=== PATIENT | male | born 1950 | race Caucasian/White ===

== ENCOUNTER 2019-02-13 14:40 | Emergency (ER) | payer OTHER, MEDICARE ==
--- NOTE | 2019-02-13 15:07 | EDM.PDOC ---
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 He was near syncopal onto the ground and was hypotensive per responder/ ambulance initial blood pressure readings. Was placed in an ambulance for transport which time symptoms have continued to improve denying the need for being here/requesting to go home. Denies any issues or need to stay further. Denies the IV and IV fluids discussed with him. EKG obtained via ambulance showed a sinus rhythm, rate 64, no ectopic beats, blood pressure improved slightly in route and feeling much better with diaphoresis resolving once in a cool environment. Denies any chest pain or shortness of breath or other contributing signs or symptoms. Wednesday was the initiation of his lisinopril hydrochlorothiazide which may contribute to this with the heat and environmental factors of his work. Onset: Today, Sudden Onset Date: 02/13/19 Onset Time: 14:15 Duration: Hour(s):, Improving Location: Reports: Back Quality: Reports: Sharp Severity: Moderate Improves with: Reports: Other (Time cool air) Worsens with: Reports: None Context: Reports: Activity Associated Symptoms: Reports: No Other Symptoms. Denies: Chest Pain, Fever/ Chills, Headaches - Related Data Allergies Allergy/AdvReac Type Severity Reaction Status Date / Time Penicillins Allergy Rash Verified 02/13/19 14:51 Home Meds: Home Meds Lisinopril/Hydrochlorothiazide [Lisinopril-Hctz 20-25 mg Tab] 1 tab PO DAILY [History] metFORMIN HCl [Metformin HCl ER] 500 mg PO DAILY 02/13/19 [History] Past Medical History HEENT History: Reports: None Cardiovascular History: Reports: Hypertension Respiratory History: Reports: None Gastrointestinal History: Reports: None Genitourinary History: Reports: None Musculoskeletal History: Reports: Amputation (Right index) Neurological History: Reports: None Psychiatric History: Reports: None Endocrine/Metabolic History: Reports: Diabetes, Type II Hematologic History: Reports: None Immunologic History: Reports: None Oncologic (Cancer) History: Reports: None Dermatologic History: Reports: None - Infectious Disease History Infectious Disease History: Reports: None - Past Surgical History HEENT Surgical History: Reports: None Cardiovascular Surgical History: Reports: None Respiratory Surgical History: Reports: None GI Surgical History: Reports: Hernia, Abdominal Social & Family History - Family History Family Medical History: Noncontributory - Tobacco Use Smoking Status *Q: Former Smoker Tobacco Use Within Last Twelve Months: No Month/Year Tobacco Last Used: mar 1999 Smoking Cessation Information Provided To Patient: No Second Hand Smoke Exposure: No - Caffeine Use Caffeine Use: Reports: Coffee - Alcohol Use Alcohol Use History: Yes Alcohol Use in Last Twelve Months: Yes Alcohol Use Frequency: Rarely (4 or 5 beers in the past year) - Recreational Drug Use Recreational Drug Use: No Drug Use in Last 12 Months: No - Sexual History Sexual History: Reports: None ED ROS GENERAL - Review of Systems Review Of Systems: See Below Constitutional: Reports: No Symptoms HEENT: Reports: No Symptoms Respiratory: Reports: No Symptoms Cardiovascular: Reports: No Symptoms Endocrine: Reports: No Symptoms GI/Abdominal: Reports: No Symptoms : Reports: No Symptoms Musculoskeletal: Reports: No Symptoms Skin: Reports: No Symptoms Neurological: Reports: Dizziness Psychiatric: Reports: No Symptoms Hematologic/Lymphatic: Reports: No Symptoms Immunologic: Reports: No Symptoms ED EXAM, GENERAL - Physical Exam Exam: See Below Exam Limited By: No Limitations General Appearance: Alert, WD/WN, No Apparent Distress Eye Exam: Bilateral Eye: PERRL Ears: Normal External Exam, Normal Canal, Hearing Grossly Normal, Normal TMs Nose: Normal Inspection, Normal Mucosa, No Blood Throat/Mouth: Normal Inspection, Normal Lips, Normal Teeth, Normal Gums, Normal Oropharynx, Normal Voice, No Airway Compromise Head: Atraumatic, Normocephalic Neck: Normal Inspection, Supple, Non-Tender, Full Range of Motion Respiratory/Chest: No Respiratory Distress, Lungs Clear, Normal Breath Sounds, No Accessory Muscle Use, Chest Non-Tender Cardiovascular: Normal Peripheral Pulses, Regular Rate, Rhythm, No Edema, No Gallop, No JVD, No Murmur, No Rub GI/Abdominal: Normal Bowel Sounds, Soft, Non-Tender, No Organomegaly, No Distention, No Abnormal Bruit, No Mass (Male) Exam: Deferred Rectal (Males) Exam: Deferred Back Exam: Normal Inspection, Full Range of Motion Extremities: Normal Inspection, Normal Range of Motion, Non-Tender, Normal Capillary Refill, No Pedal Edema Neurological: Alert, Oriented, CN II-XII Intact, Normal Cognition, Normal Gait, Normal Reflexes, No Motor/Sensory Deficits Psychiatric: Normal Affect, Normal Mood Skin Exam: Warm, Dry, Intact, Normal Color, No Rash Lymphatic: No Adenopathy Course - Vital Signs Last Recorded V/S: Last Vital Signs Temp 36.8 C 02/13/19 14:52 Pulse 60 02/13/19 15:52 Resp 18 02/13/19 15:52 BP 148/70 H 02/13/19 15:52 Pulse Ox 97 02/13/19 15:52 - Orders/Labs/Meds Orders: Active Orders 24 hr Category Date Time Status Peripheral IV Care [RC] . DIRECTED Care 02/13/19 15:44 Active Sodium Chloride 0.9% [Saline Flush] Med 02/13/19 15:44 Active 10 ml FLUSH Q8HR PRN Peripheral IV Insertion Adult [OM.PC] Routine Oth 02/13/19 15:44 Ordered Medication Orders Sodium Chloride (Saline Flush) 10 ml FLUSH Q8HR PRN PRN Reason: keep vein open Labs: Laboratory Tests 02/13/19 02/13/19 02/13/19 Range/Units 14:55 14:55 15:55 WBC 11.47 H (5.00-10.00) 10^3/uL RBC 3.52 L (4.50-6.00) 10^6/uL Hgb 10.9 L (13.0-17.0) g/dL Hct 30.7 L (40.0-52.0) % MCV 87.2 (82.0-92.0) fL MCH 31.0 (27.0-31.0) pg MCHC 35.5 (32.0-36.0) g/dL RDW 12.7 (11.5-14.5) % Plt Count 335 (150-400) 10^3/uL MPV 8.9 (7.4-10.4) fL Immature Gran % (Auto) 0.3 (0.0-5.0) % Neut % (Auto) 64.9 (50.0-70.0) % Lymph % (Auto) 25.4 (20.0-40.0) % Dubois % (Auto) 7.8 (2.0-8.0) % Eos % (Auto) 1.2 (1.0-3.0) % Baso % (Auto) 0.4 (0.0-1.0) % Immature Gran # (Auto) 0.04 (0.00-0.50) 10^3/uL Neut # (Auto) 7.44 H (2.50-7.00) 10^3/uL Lymph # (Auto) 2.91 (1.00-4.00) 10^3/uL Dubois # (Auto) 0.89 H (0.10-0.80) 10^3/uL Eos # (Auto) 0.14 (0.10-0.30) 10^3/uL Baso # (Auto) 0.05 (0.00-0.10) 10^3/uL Sodium 134 L (136-145) mmol/L Potassium 4.4 (3.3-5.3) mmol/L Chloride 101 (98-115) mmol/L Carbon Dioxide 23.0 (21.0-32.0) mmol/L Anion Gap 14.4 (5-15) mmol/L BUN 33 H (6-25) mg/dL Creatinine 1.67 H (0.51-1.17) mg/dL Est Cr Clr Drug Dosing 42.43 mL/min Estimated GFR (MDRD) 41 mL/min Glucose 163 H (75 - 99) mg/dL Calcium 9.0 (8.7-10.3) mg/dL Troponin I 0.01 (0.00-0.08) ng/mL Meds: Medications Generic Name Dose Route Start Last Admin Trade Name Freq PRN Reason Stop Dose Admin Sodium Chloride 10 ml 02/13/19 15:44 Saline Flush FLUSH Q8HR PRN keep vein open Discontinued Medications Generic Name Dose Route Start Last Admin Trade Name Freq PRN Reason Stop Dose Admin Sodium Chloride 1,000 mls @ 999 mls/hr 02/13/19 15:43 02/13/19 15:47 Normal Saline IV 02/13/19 16:43 999 mls/hr .BOLUS ONE Administration Departure - Departure Time of Disposition: 16:57 Disposition: Home, Self-Care 01 Condition: Good Clinical Impression: Dehydration, Acute on chronic renal failure, Diabetes type 2, controlled - Discharge Information *PRESCRIPTION DRUG MONITORING PROGRAM REVIEWED*: Not Applicable *COPY OF PRESCRIPTION DRUG MONITORING REPORT IN PATIENT DIMITRY: Not Applicable Instructions: Type 2 Diabetes Mellitus, Diagnosis, Adult, Chronic Kidney Disease, Adult, [id number] Referrals: Cuca Neal MD [Primary Care Provider] - Forms: ED Department Discharge, ED Return to Work/School Form Additional Instructions: He needs to increase his fluid consumption, predominantly water, daily. 3 quarts 96 ounces, up to 1 gallon 128 ounces per day, to be drank in addition to what fluid you use with your meals. You can tell by the color/concentration of your urine if you are getting dry and Need more water as your urine should only be dark when you awaken in the morning with the first urination of the day. By noon your urine should be almost as clear as a glass of water if you are maintaining good hydration. You need to go to the clinic Wednesday for a recheck of your lab work as well as her blood pressure. In reviewing your chart you have had elevated creatinine and BUNs and in the past which showed improvement. This is the first high reading you have had since fall. The lab testing and evaluation at the appointment on Wednesday will determine if you need to stay on the lisinopril hydrochlorothiazide medication or if adjusting of that medication in combination as well as a dosing needs to be considered. No work until Wednesday after your appointment in the clinic for recheck. It may be best if you carry a one gallon water jug with you to work knowing that you need to start with that full in the morning and have it empty before you go to bed each night. Call or return if you have any questions or concerns develop. - Problem List & Annotations (1) Syncope and collapse SNOMED Code(s): 994925534 Code(s): R55 - SYNCOPE AND COLLAPSE Status: Acute Priority: High Current Visit: Yes (2) History of chronic back pain SNOMED Code(s): 107892051 Code(s): Z87.39 - PERSONAL HISTORY OF DISEASES OF THE MS SYS AND CONN TISS Status: Chronic Priority: Medium Current Visit: Yes (3) Diabetes type 2, controlled SNOMED Code(s): 34264502, 016861283 Code(s): E11.9 - TYPE 2 DIABETES MELLITUS WITHOUT COMPLICATIONS Status: Chronic Priority: Medium Current Visit: Yes Qualifiers: Diabetes mellitus complication status: without complication (4) Hypertension associated with diabetes SNOMED Code(s): 40835341 Code(s): E11.59 - TYPE 2 DIABETES MELLITUS WITH OTH CIRCULATORY COMPLICATIONS ; I10 - ESSENTIAL (PRIMARY) HYPERTENSION Status: Chronic Priority: Medium Current Visit: Yes Annotation/Comment:: Recent restart of medication lisinopril with hydrochlorothiazide (5) Acute on chronic renal insufficiency SNOMED Code(s): 616748947 Code(s): N28.9 - DISORDER OF KIDNEY AND URETER, UNSPECIFIED; N18.9 - CHRONIC KIDNEY DISEASE, UNSPECIFIED Status: Acute Priority: High Current Visit: Yes - Problem List Review Problem List Initiated/Reviewed/Updated: Yes - My Orders Last 24 Hours: My Active Orders 02/13/19 15:44 Peripheral IV Care [RC] . DIRECTED Sodium Chloride 0.9% [Saline Flush] 10 ml FLUSH Q8HR PRN Peripheral IV Insertion Adult [OM.PC] Routine - Assessment/Plan Last 24 Hours: My Active Orders 02/13/19 15:44 Peripheral IV Care [RC] . DIRECTED Sodium Chloride 0.9% [Saline Flush] 10 ml FLUSH Q8HR PRN Peripheral IV Insertion Adult [OM.PC] Routine Plan: He needs to increase his fluid consumption, predominantly water, daily. 3 quarts 96 ounces, up to 1 gallon 128 ounces per day, to be drank in addition to what fluid you use with your meals. You can tell by the color/concentration of your urine if you are getting dry and Need more water as your urine should only be dark when you awaken in the morning with the first urination of the day. By noon your urine should be almost as clear as a glass of water if you are maintaining good hydration. You need to go to the clinic Wednesday morning 15 February for a recheck of your lab work as well as her blood pressure. In reviewing your chart you have had elevated creatinine and BUNs and in the past which showed improvement. This is the first high reading you have had since fall. The lab testing and evaluation at the appointment on Wednesday will determine if you need to stay on the lisinopril hydrochlorothiazide medication or if adjusting of that medication in combination as well as a dosing needs to be considered. No work until Wednesday morning after your appointment in the clinic for recheck. It may be best if you carry a one gallon water jug with you to work knowing that you need to start with that full in the morning and have it empty before you go to bed each night. Call or return if you have any questions or concerns develop.
[2019-02-13 15:39] LABS: ANION GAP 14.4 mmol/L (5-15)
[2019-02-13] MEDS ORDERED: Sodium Chloride 0.9% 1,000 ML IV ONE (15:43)
[2019-02-13] MEDS ORDERED: Sodium Chloride 0.9% 10 ML Syringe FLUSH PRN (15:44)
== END 2019-02-13 17:10 | disposition home or self-care (01) ==
LOC: KA.ED 14:40
DX: E86.0 Dehydration (principal); I12.9 Hypertensive chronic kidney disease with stage 1 through stage 4 chronic kidney disease, or unspecified chronic kidney disease; N18.9 Chronic kidney disease, unspecified; E11.22 Type 2 diabetes mellitus with diabetic chronic kidney disease; I10 Essential (primary) hypertension; Z88.1 Allergy status to other antibiotic agents; Z79.899 Other long term (current) drug therapy; Z79.84 Long term (current) use of oral hypoglycemic drugs; Z87.891 Personal history of nicotine dependence
CPT/HCPCS: 36415; 80048; 84484; 85025; 96360; 99284; J7030

== ENCOUNTER 2019-02-18 23:37 | Emergency (ER) | payer OTHER ==
[2019-02-19 00:54] LABS: BARBITURATE SCREEN,URINE NEGATIVE (NEGATIVE); BENZODIAZEPINES SCREEN,URINE NEGATIVE (NEGATIVE); TCA SCREEN,URINE NEGATIVE (NEGATIVE); THC SCREEN,URINE 50 NG/ML NEGATIVE (NEGATIVE)
--- NOTE | 2019-02-19 00:55 | EDM.PDOC ---
ED HPI GENERAL MEDICAL PROBLEM - General Chief Complaint: Neurological Problem Stated Complaint: confusion Time Seen by Provider: 02/19/19 00:10 Source of Information: Reports: Patient, EMS History Limitations: Reports: Altered Mental Status - History of Present Illness INITIAL COMMENTS - FREE TEXT/NARRATIVE: 68 YO WM presents to ER by EMS with episode of confusion. Pt went to work earlier today around 9:30-10pm when he wasn't scheduled to work and called the police due to concerns of a break in. When police arrived they realized he was the only one there and no break in had occurred and called his boss who showed up and recognized he was more confused then normal. Pt was brought to ER by EMS/ police for evaluation. Pt's daughter Heather was called who reports concerns that he has been becoming increasingly confused to family members and events over the last year. Pt is alert to person and place but confused about day of the week. Pt able to tell me the month and year. Pt able to tell me the medications he takes. Pt able to tell me the names of his children and where they live. Pt in NAD. GCS-15 without neuro deficits. Pt able to ambulate without difficulty. Pt denies headache, neck pain, fever/chills, recent illnesses. Pt denies drug or alcohol use. Pt denies chest pain, shortness of breath, vomiting/diarrhea. Pt reports eating only a banana today and when asked why he states he is trying to lose weight. Pt denies any head or neck injuries or recent trauma. Onset: Unknown/Unsure Duration: Recurring, Waxing/Waning Location: Reports: Generalized Severity: Mild Improves with: Reports: None Worsens with: Reports: None Associated Symptoms: Reports: No Other Symptoms, Confusion. Denies: Chest Pain , Fever/Chills, Headaches, Malaise, Nausea/Vomiting, Seizure, Shortness of Breath, Weakness - Related Data Allergies Allergy/AdvReac Type Severity Reaction Status Date / Time Penicillins Allergy Rash Verified 02/18/19 23:43 Home Meds: Home Meds Lisinopril/Hydrochlorothiazide [Lisinopril-Hctz 20-25 mg Tab] 1 tab PO DAILY [History] metFORMIN HCl [Metformin HCl ER] 500 mg PO DAILY 02/13/19 [History] Past Medical History HEENT History: Reports: Impaired Vision Cardiovascular History: Reports: Hypertension Respiratory History: Reports: None Gastrointestinal History: Reports: None Genitourinary History: Reports: None Musculoskeletal History: Reports: Amputation Neurological History: Reports: None Psychiatric History: Reports: Other (See Below) Other Psychiatric History: memory problems noticed by patient and family for some time now, about 6 months or so Endocrine/Metabolic History: Reports: Diabetes, Type II Hematologic History: Reports: None Immunologic History: Reports: None Oncologic (Cancer) History: Reports: None Dermatologic History: Reports: None - Infectious Disease History Infectious Disease History: Reports: None - Past Surgical History HEENT Surgical History: Reports: None Cardiovascular Surgical History: Reports: None Respiratory Surgical History: Reports: None GI Surgical History: Reports: Hernia, Abdominal Endocrine Surgical History: Reports: None Neurological Surgical History: Reports: None Social & Family History - Family History Family Medical History: Noncontributory - Tobacco Use Smoking Status *Q: Former Smoker Used Tobacco, but Quit: Yes Month/Year Tobacco Last Used: 10 - Caffeine Use Caffeine Use: Reports: Coffee - Recreational Drug Use Recreational Drug Use: No - Sexual History Sexual History: Reports: None ED ROS GENERAL - Review of Systems Review Of Systems: See Below Constitutional: Reports: No Symptoms HEENT: Reports: No Symptoms Respiratory: Reports: No Symptoms Cardiovascular: Reports: No Symptoms Endocrine: Reports: No Symptoms GI/Abdominal: Reports: No Symptoms : Reports: No Symptoms Musculoskeletal: Reports: No Symptoms Skin: Reports: No Symptoms Neurological: Reports: Confusion. Denies: Dizziness, Headache, Numbness, Paresthesia, Seizure, Syncope, Trouble Speaking, Difficulty Walking, Weakness, Change in Speech, Gait Disturbance Psychiatric: Reports: Confusion. Denies: Agitation, Anxiety, Cravings, Depression, Homicidal Ideation, Mood Lability, Suicidal Ideation Hematologic/Lymphatic: Reports: No Symptoms Immunologic: Reports: No Symptoms - Physical Exam Exam: See Below Exam Limited By: Altered Mental Status General Appearance: Alert, WD/WN, No Apparent Distress Eye Exam: Bilateral Eye: EOMI, PERRL Nose: Normal Inspection, Normal Mucosa, No Blood Throat/Mouth: Normal Inspection, Normal Lips, Normal Teeth, Normal Gums, Normal Oropharynx, Normal Voice, No Airway Compromise Head Exam: Atraumatic, Normocephalic Neck: Normal Inspection, Supple, Non-Tender, Full Range of Motion Respiratory/Chest: No Respiratory Distress, Lungs Clear, Normal Breath Sounds, No Accessory Muscle Use, Chest Non-Tender Cardiovascular: Normal Peripheral Pulses, Regular Rate, Rhythm, No Edema, No Gallop, No JVD, No Murmur, No Rub GI/Abdominal: Normal Bowel Sounds, Soft, Non-Tender, No Organomegaly, No Distention, No Abnormal Bruit, No Mass Neuro Exam (Abbreviated): Alert, Oriented, CN II-XII Intact, Normal Cognition, Normal Gait, Normal Reflexes, No Motor/Sensory Deficits Back Exam: Normal Inspection, Full Range of Motion, NT Extremities: Normal Inspection, Normal Range of Motion, Non-Tender, No Pedal Edema, Normal Capillary Refill Psychiatric: Normal Affect, Normal Mood Skin Exam: Warm, Dry, Intact, Normal Color, No Rash EKG INTERPRETATION EKG Date: 02/19/19 Time: 01:39 Rhythm: NSR Rate (Beats/Min): 70 [place]: Normal P-Wave: Present QRS: Normal ST-T: Normal QT: Normal Comparison: NA - No Prior EKG Course - Vital Signs Last Recorded V/S: Last Vital Signs Temp 36.2 C 02/18/19 23:37 Pulse 64 02/18/19 23:37 Resp 20 02/18/19 23:37 BP 141/61 H 02/18/19 23:37 Pulse Ox 96 02/18/19 23:37 - Orders/Labs/Meds Orders: Active Orders 24 hr Category Date Time Status EKG Documentation Completion [RC] ASDIRECTED Care 02/19/19 01:16 Active CULTURE URINE [RM] Stat Lab 02/19/19 00:10 Received Sodium Chloride 0.9% [Normal Saline] 1,000 ml Med 02/19/19 01:09 Active IV .BOLUS EKG 12 Lead [EK] Routine Ther 02/19/19 01:16 Ordered Medication Orders Sodium Chloride (Normal Saline) 1,000 mls @ 999 mls/hr IV .BOLUS ONE Stop: 02/19/19 02:09 Last Admin: 02/19/19 01:15 Dose: 999 mls/hr Labs: Laboratory Tests 02/19/19 02/19/19 02/19/19 Range/Units 00:10 00:10 00:40 WBC 9.49 (5.00-10.00) 10^3/uL RBC 3.36 L (4.50-6.00) 10^6/uL Hgb 10.2 L (13.0-17.0) g/dL Hct 27.7 L (40.0-52.0) % MCV 82.4 D (82.0-92.0) fL MCH 30.4 (27.0-31.0) pg MCHC 36.8 H (32.0-36.0) g/dL RDW 12.4 (11.5-14.5) % Plt Count 268 (150-400) 10^3/uL MPV 8.7 (7.4-10.4) fL Immature Gran % (Auto) 0.4 (0.0-5.0) % Neut % (Auto) 58.3 (50.0-70.0) % Lymph % (Auto) 28.9 (20.0-40.0) % [place] % (Auto) 11.1 H (2.0-8.0) % Eos % (Auto) 1.1 (1.0-3.0) % Baso % (Auto) 0.2 (0.0-1.0) % Immature Gran # (Auto) 0.04 (0.00-0.50) 10^3/uL Neut # (Auto) 5.54 (2.50-7.00) 10^3/uL Lymph # (Auto) 2.74 (1.00-4.00) 10^3/uL [place] # (Auto) 1.05 H (0.10-0.80) 10^3/uL Eos # (Auto) 0.10 (0.10-0.30) 10^3/uL Baso # (Auto) 0.02 (0.00-0.10) 10^3/uL Sodium (136-145) mmol/L Potassium (3.3-5.3) mmol/L Chloride (98-115) mmol/L Carbon Dioxide (21.0-32.0) mmol/L Anion Gap (5-15) mmol/L BUN (6-25) mg/dL Creatinine (0.51-1.17) mg/dL Est Cr Clr Drug Dosing mL/min Estimated GFR (MDRD) mL/min Glucose (75 - 99) mg/dL Calcium (8.7-10.3) mg/dL Total Bilirubin (0.2-1.0) mg/dL AST (15-37) U/L ALT (12-78) U/L Alkaline Phosphatase (46-116) IU/L Total Protein (6.4-8.2) g/dL Albumin (3.00-4.80) g/dL Specimen Type Urincc Urine Color Yellow (YELLOW) Urine Appearance Slightly cloudy H (CLEAR) Urine pH 5.5 (5.0-9.0) Ur Specific [place] 1.015 (1.005-1.030) Urine Protein Negative (NEGATIVE) mg/dL Urine Glucose (UA) Negative (NEGATIVE) mg/dL Urine Ketones Negative (NEGATIVE) mg/dL Urine Occult Blood Negative (NEGATIVE) Urine Nitrite Negative (NEGATIVE) Urine Bilirubin Negative (NEGATIVE) Urine Urobilinogen 0.2 (0.2-1.0) E.U./dL Ur Leukocyte Esterase Trace H (NEGATIVE) Urine RBC 0-5 (0-5) /HPF Urine WBC 0-5 (0-5) /HPF Ur Epithelial Cells Few /LPF Urine Bacteria Moderate H (NONE TO FEW) /HPF Hyaline Casts Few H (NEGATIVE) /LPF Urine Opiates Screen Negative (NEGATIVE) Ur Oxycodone Screen Negative (NEGATIVE) Urine Methadone Screen Negative (NEGATIVE) Ur Propoxyphene Screen Negative (NEGATIVE) Ur Barbiturates Screen Negative (NEGATIVE) Ur Tricyclics Screen Negative (NEGATIVE) Ur Phencyclidine Scrn Negative (NEGATIVE) Ur Amphetamine Screen Negative (NEGATIVE) U Methamphetamines Scrn Negative (NEGATIVE) U Benzodiazepines Scrn Negative (NEGATIVE) U Cocaine Metab Screen Negative (NEGATIVE) U Marijuana (THC) Screen Negative (NEGATIVE) Ethyl Alcohol (NONE DETECTED) mg/dL 02/19/19 Range/Units 00:40 WBC (5.00-10.00) 10^3/uL RBC (4.50-6.00) 10^6/uL Hgb (13.0-17.0) g/dL Hct (40.0-52.0) % MCV (82.0-92.0) fL MCH (27.0-31.0) pg MCHC (32.0-36.0) g/dL RDW (11.5-14.5) % Plt Count (150-400) 10^3/uL MPV (7.4-10.4) fL Immature Gran % (Auto) (0.0-5.0) % Neut % (Auto) (50.0-70.0) % Lymph % (Auto) (20.0-40.0) % [place] % (Auto) (2.0-8.0) % Eos % (Auto) (1.0-3.0) % Baso % (Auto) (0.0-1.0) % Immature Gran # (Auto) (0.00-0.50) 10^3/uL Neut # (Auto) (2.50-7.00) 10^3/uL Lymph # (Auto) (1.00-4.00) 10^3/uL [place] # (Auto) (0.10-0.80) 10^3/uL Eos # (Auto) (0.10-0.30) 10^3/uL Baso # (Auto) (0.00-0.10) 10^3/uL Sodium 118 L* (136-145) mmol/L Potassium 4.1 (3.3-5.3) mmol/L Chloride 85 L* (98-115) mmol/L Carbon Dioxide 20.9 L (21.0-32.0) mmol/L Anion Gap 16.2 H (5-15) mmol/L BUN 39 H (6-25) mg/dL Creatinine 2.26 H (0.51-1.17) mg/dL Est Cr Clr Drug Dosing 30.85 mL/min Estimated GFR (MDRD) 29 mL/min Glucose 93 (75 - 99) mg/dL Calcium 8.8 (8.7-10.3) mg/dL Total Bilirubin 0.5 (0.2-1.0) mg/dL AST 15 (15-37) U/L ALT 19 (12-78) U/L Alkaline Phosphatase 75 (46-116) IU/L Total Protein 7.7 (6.4-8.2) g/dL Albumin 3.87 (3.00-4.80) g/dL Specimen Type Urine Color (YELLOW) Urine Appearance (CLEAR) Urine pH (5.0-9.0) Ur Specific [place] (1.005-1.030) Urine Protein (NEGATIVE) mg/dL Urine Glucose (UA) (NEGATIVE) mg/dL Urine Ketones (NEGATIVE) mg/dL Urine Occult Blood (NEGATIVE) Urine Nitrite (NEGATIVE) Urine Bilirubin (NEGATIVE) Urine Urobilinogen (0.2-1.0) E.U./dL Ur Leukocyte Esterase (NEGATIVE) Urine RBC (0-5) /HPF Urine WBC (0-5) /HPF Ur Epithelial Cells /LPF Urine Bacteria (NONE TO FEW) /HPF Hyaline Casts (NEGATIVE) /LPF Urine Opiates Screen (NEGATIVE) Ur Oxycodone Screen (NEGATIVE) Urine Methadone Screen (NEGATIVE) Ur Propoxyphene Screen (NEGATIVE) Ur Barbiturates Screen (NEGATIVE) Ur Tricyclics Screen (NEGATIVE) Ur Phencyclidine Scrn (NEGATIVE) Ur Amphetamine Screen (NEGATIVE) U Methamphetamines Scrn (NEGATIVE) U Benzodiazepines Scrn (NEGATIVE) U Cocaine Metab Screen (NEGATIVE) U Marijuana (THC) Screen (NEGATIVE) Ethyl Alcohol < 3 (NONE DETECTED) mg/dL Meds: Medications Generic Name Dose Route Start Last Admin Trade Name Freq PRN Reason Stop Dose Admin Sodium Chloride 1,000 mls @ 999 mls/hr 02/19/19 01:09 02/19/19 01:15 Normal Saline IV 02/19/19 02:09 999 mls/hr .BOLUS ONE Administration - Radiology Interpretation Free Text/Narrative:: CT head-NAD CXR- NAD Departure - Departure Time of Disposition: 01:36 Disposition: DC/Tfer to [facility] 02 Condition: Serious Clinical Impression: Acute hyponatremia Acute renal failure (ARF) Qualifiers: Acute renal failure type: unspecified Qualified Code(s): N17.9 - Acute kidney failure, unspecified - Discharge Information Forms: ED Department Discharge, Interfacility Transfer EMTALA - My Orders Last 24 Hours: My Active Orders 02/19/19 00:10 CULTURE URINE [RM] Stat 02/19/19 01:09 Sodium Chloride 0.9% [Normal Saline] 1,000 ml IV .BOLUS 02/19/19 01:16 EKG Documentation Completion [RC] ASDIRECTED EKG 12 Lead [EK] Routine - Assessment/Plan Last 24 Hours: My Active Orders 02/19/19 00:10 CULTURE URINE [RM] Stat 02/19/19 01:09 Sodium Chloride 0.9% [Normal Saline] 1,000 ml IV .BOLUS 02/19/19 01:16 EKG Documentation Completion [RC] ASDIRECTED EKG 12 Lead [EK] Routine Assessment:: 1. Severe hyponatremia 2. acute renal failure Plan: 1. transfer to [facility]- Dr العلي accepting 2. NS bolus 3. supportive care
[2019-02-19 01:03] LABS: ANION GAP 16.2 mmol/L (5-15)
[2019-02-19 01:05] LABS: SODIUM,NA 118 mmol/L (136-145)
[2019-02-19 01:06] LABS: CHLORIDE,CL 85 mmol/L (98-115)
[2019-02-19] MEDS ORDERED: Sodium Chloride 0.9% 1,000 ML IV ONE ×2 (01:09→02:14)
[2019-02-19] MEDS ORDERED: LORazepam 2 MG/ML SDV IVPUSH ONE (02:11)
--- NOTE | 2019-02-19 09:49 | CT ---
[id number] CT/CT Head WO IV EXAM: CT Head WO IV CLINICAL DATA: ALTERED MENTAL STATUS COMPARISON STUDY: October 12, 2011. FINDINGS: No intracranial hemorrhage, extra-axial fluid collection, mass, or acute ischemia. Generalized parenchymal atrophy with scattered areas of nonspecific white matter disease, commonly seen as sequela of chronic microvascular ischemia. Soft tissues are unremarkable. Paranasal sinuses and mastoid air cells are clear. IMPRESSION: No acute intracranial findings. Pb Craig DO 02/19/19 0948 Thank you for allowing us to participate in the care of your patient.
--- NOTE | 2019-02-19 10:29 | CR ---
[id number] RAD/RAD Chest PA And Lateral EXAM: RAD Chest PA And Lateral INDICATION: ALTERED MENTAL STATE COMPARISON: None. DISCUSSION: Cardiomediastinal silhouette is stable in size and contour. No infiltrate, effusion, pneumothorax, or edema. Pulmonary hyperinflation. IMPRESSION: No acute cardiopulmonary abnormality. Pb Craig DO 02/19/19 1028 Thank you for allowing us to participate in the care of your patient.
== END 2019-02-19 02:30 ==
LOC: KA.ED 23:37
DX: N17.9 Acute kidney failure, unspecified (principal); E87.1 Hypo-osmolality and hyponatremia; I10 Essential (primary) hypertension; E11.9 Type 2 diabetes mellitus without complications; Z88.0 Allergy status to penicillin; Z79.84 Long term (current) use of oral hypoglycemic drugs; Z79.899 Other long term (current) drug therapy; Z87.891 Personal history of nicotine dependence
CPT/HCPCS: 36415; 70450; 71046; 80053; 80305; 81001; 85025; 87086; 93005; 96361; 96374; 99285; G0480; J2060; J7030

== ENCOUNTER 2019-11-07 07:43 | Day surgery (SDC) | payer MEDICARE, OTHER ==
[~2019-11-07 07:43] MED LIST: Lidocaine 2% 5 ML SDV ONE; Midazolam 1 MG/ML 2 ML SDV ONE; Propofol 200 MG/20 ML SDV ONE
[2019-11-07] MEDS ORDERED: Sodium Chloride 0.9% 10 ML Syringe FLUSH PRN (08:00)
[2019-11-07] MEDS ORDERED: Sodium Chloride 0.9% 1,000 ML IV SCH (08:00)
[2019-11-07] MEDS ORDERED: Propofol 200 MG/20 ML SDV ONE (09:00)
[2019-11-07] MEDS ORDERED: Lactated Ringers 1,000 ML ONE (09:12)
[2019-11-07] MEDS ORDERED: Midazolam 1 MG/ML 2 ML SDV IV ONE (09:12)
[2019-11-07] MEDS ORDERED: Lidocaine 2% 5 ML SDV IV ONE (09:12)
[2019-11-07] MEDS ORDERED: Propofol 200 MG/20 ML SDV IV ONE (09:12)
--- NOTE | 2019-11-07 09:16 | PCM.PN ---
- General Info Date of Service: 11/07/19 - Review of Systems Systems Review Comment:: 69-year-old male with recently identified anemia referred for colonoscopy. The patient states he has a family history of colon cancer as well. His mother was diagnosed with this disease in her eighth decade of life. The patient denies seeing any blood in his stool. He does however complain of new symptoms of dysphasia over the last 6 weeks. He has had some heartburn symptoms in the past although says they have been mild recently. The patient is medically stable to proceed today. His recent history and physical is reviewed and no significant changes are noted. I have recommended that he proceed with both EGD and colonoscopy because of his symptoms and findings. He agrees to this. I have discussed the proposed operative procedure with the patient. Risks such as but not limited to bleeding and GI injury reviewed. He agrees to proceed. - Patient Data Vitals - Most Recent: Last Vital Signs Temp 98.5 F 11/07/19 07:56 Pulse 61 11/07/19 07:56 Resp 20 11/07/19 07:56 BP 163/73 H 11/07/19 07:56 Pulse Ox 100 11/07/19 07:56 Weight - Most Recent: 83.915 kg Lab Results Last 24 Hours: Laboratory Results - last 24 hr 11/07/19 Range/Units 08:07 POC Glucose 97 (74-106) mg/dl Med Orders - Current: Current Medications Sodium Chloride (Normal Saline) 1,000 mls @ 50 mls/hr IV ASDIRECTED GABRIELLA Sodium Chloride (Saline Flush) 10 ml FLUSH Q8HR PRN PRN Reason: keep vein open Discontinued Medications Lidocaine (Xylocaine-Mpf 2%) Confirm Administered Dose 5 ml .ROUTE .STK-MED ONE Stop: 11/07/19 07:26 Midazolam HCl (Versed 1 Mg/Ml) Confirm Administered Dose 2 mg .ROUTE .STK-MED ONE Stop: 11/07/19 07:26 Propofol (Diprivan 20 Ml) Confirm Administered Dose 400 mg .ROUTE .STK-MED ONE Stop: 11/07/19 07:26 Sepsis Event Note - Focused Exam Vital Signs: Vital Signs Temp Pulse Resp BP Pulse Ox 11/07/19 07:56 98.5 F 61 20 163/73 H 100 Date Exam was Performed: 11/07/19 Time Exam was Performed: 09:13 - Problem List Review Problem List Initiated/Reviewed/Updated: Yes - My Orders Last 24 Hours: My Active Orders 11/06/19 13:04 Resuscitation Status Routine 11/07/19 08:00 Blood Glucose Check, Bedside [RC] UPON Peripheral IV Care [RC] . DIRECTED Sodium Chloride 0.9% [Normal Saline] 1,000 ml IV ASDIRECTED Sodium Chloride 0.9% [Saline Flush] 10 ml FLUSH Q8HR PRN Peripheral IV Insertion Adult [OM.PC] Routine 11/07/19 08:30 Patient to Empty Bladder [RC] ASDIRECTED 11/07/19 09:00 Verify Patient Consent Obtain [RC] ASDIRECTED 11/07/19 Breakfast Nothing Per Oral Diet [DIET] - Assessment Assessment:: Dysphasia History of colon cancer Anemia - Plan Plan:: EGD and colonoscopy
--- NOTE | 2019-11-07 10:15 | PCM.OPNOTE ---
- General Post-Op/Procedure Note Date of Surgery/Procedure: 11/07/19 Operative Procedure(s): EGD with Biopsy and Colonoscopy Findings: Large fungating distal esophageal mass Localized gastric antral inflammation with erosion Normal colon Pre Op Diagnosis: Dysphagia. Anemia. Family History of Colon Cancer Post-Op Diagnosis: Esophageal Mass. Gastric Antritis. Normal Colon Anesthesia Technique: [facility] Primary Surgeon: Homar Tom Pathology: Biopsies of esophageal mass and gastric antrum EBL in mLs: 5 Complications: None Condition: Good
--- NOTE | 2019-11-07 12:01 | OR ---
DATE OF SURGERY: 11/07/2019 SURGEON: Homar Tom MD PREOPERATIVE DIAGNOSIS: Dysphagia, anemia, family history of colon cancer. POSTOPERATIVE DIAGNOSIS: 1. Esophageal mass (suspect malignancy). 2. Gastritis with erosion. 3. Normal colon. OPERATION PERFORMED: Esophagogastroduodenoscopy with biopsy and colonoscopy. INDICATIONS FOR SURGERY: This 69-year-old male has been having recent difficulty with unexplained anemia. He also is having symptoms of dysphagia and is referred for upper and lower endoscopy. FINDINGS: On upper endoscopy, the patient has a large fungating mass in the distal esophagus. This is approximately 8 cm in length. It extends from the GE junction proximally and encompasses approximately 60% of the esophageal lumen. It does cause narrowing of the esophagus, although the gastroscope is able to be advanced past this area. The mass is firm in some areas, but in some areas is soft. In the gastric antrum, there is localized area of inflammation with some small erosions but no active bleeding is seen. The duodenum appears normal. The patient's colon also appears normal. DESCRIPTION OF PROCEDURE: The patient was taken to the operating room. He was given intravenous sedation and with him in the left lateral decubitus position, the Olympus gastroscope was advanced through a mouth guard into the oral cavity. Under direct visualization, the scope was carefully advanced through the oropharynx and into the esophagus. The scope was carefully advanced to the distal esophagus where the large mass is easily identified. The scope was able to be advanced past this point down through the stomach and into the duodenum where examination to the 3rd portion was performed. Careful examination of the duodenum was carried out and that appeared normal. The scope was withdrawn back into the stomach where full examination including retroflexed examination of the fundus was performed. Random biopsies were taken of the gastric antrum because of the inflammation seen there, and the scope was withdrawn back into the distal esophageal area. Multiple biopsies of the esophageal mass are taken at various levels. The scope was then removed and the attention was turned to colonoscopy. Digital rectal exam was performed showing no rectal masses. The Olympus colonoscope was inserted into the rectum. Retroflexed examination of the rectal canal was performed. The scope was then carefully advanced under direct visualization through the entire length of the colon until the cecum was reached. The colon was somewhat tortuous and this did require hand pressure to negotiate the entire colon, but eventually the cecum is able to be safely reached and its identity confirmed with viewing of the ileocecal valve and appendiceal orifice and also identifying the light to transilluminate the abdominal wall in the right lower quadrant. After examining the cecum, the scope was slowly withdrawn sequentially re-examining the colonic segments until the entire colon and rectum have been fully examined. The scope was removed and the patient was taken from the operating room in satisfactory condition. ESTIMATED BLOOD LOSS: 5 mL. COMPLICATIONS: None. PROGNOSIS: Good. /[id number]/[id number]
== END 2019-11-07 11:53 | disposition home or self-care (01) ==
LOC: KA.SDS 07:43
PROVIDERS: ATTEND Surgery
DX: C15.5 Malignant neoplasm of lower third of esophagus (principal); K22.711 Barrett's esophagus with high grade dysplasia; K29.70 Gastritis, unspecified, without bleeding; K25.9 Gastric ulcer, unspecified as acute or chronic, without hemorrhage or perforation; Q43.8 Other specified congenital malformations of intestine; D64.9 Anemia, unspecified; E87.1 Hypo-osmolality and hyponatremia; R41.0 Disorientation, unspecified; G62.9 Polyneuropathy, unspecified; R23.4 Changes in skin texture; Z88.0 Allergy status to penicillin; Z79.899 Other long term (current) drug therapy; Z87.891 Personal history of nicotine dependence; Z80.0 Family history of malignant neoplasm of digestive organs
CPT/HCPCS: 00813; 43239; 45378; 82962; J2001; J2250; J2704; J7030